=== PATIENT | male | born 1995 | race African-American/Black ===

== ENCOUNTER 2020-11-24 17:00 | Emergency (ER) | payer OTHER ==
[2020-11-24] MEDS ORDERED: LIDOCAINE 1% INJ-PF (10 MG/ML) 30 ML SDV INJ ONE (17:55)
--- NOTE | 2020-11-24 17:57 | ER Document Report ---
ED Wound - General Chief Complaint: Laceration Stated Complaint: LACERATION/RIGHT PINKY FINGER Time Seen by Provider: 11/24/20 17:53 Primary Care Provider: LOUIS TODD MD [Primary Care Provider] - Follow up as needed Notes: CHIEF COMPLAINT: Right fifth finger laceration HPI: 25-year-old male with a laceration to the right fifth finger. Was doing the dishes broke a glass and cut the finger. Denies numbness or tingling in the fingertip. States he can fully flex and extend the finger. States he is up-to-date on his tetanus vaccination ROS: See HPI - all other systems were reviewed and are otherwise negative Constitutional: no fever Integumentary: Positive laceration Allergy: no hives Musculoskeletal: + extremity pain or swelling Neurological: no numbness/tingling, no weakness MEDICATIONS: I agree with the patient medications as charted by the RN. ALLERGIES: I agree with the allergies as charted by the RN. PAST MEDICAL HISTORY/PAST SURGICAL HISTORY: Reviewed and agree as charted by RN. SOCIAL HISTORY: Reviewed and agree as charted by RN. FAMILY HISTORY: No significant familial comorbid conditions directly related to patient complaint EXAM: Reviewed vital signs as charted by RN. CONSTITUTIONAL: Alert and oriented and responds appropriately to questions. Well-appearing; well-nourished HEAD: Normocephalic; atraumatic EYES: Conjunctivae clear, sclerae non-icteric ENT: normal nose; no rhinorrhea; moist mucous membranes NECK: Supple without meningismus CARD: symmetric distal pulses RESP: Normal chest excursion without splinting or tachypnea ABD/GI: non-distended BACK: The back appears normal EXT: Normal ROM in all joints; no cyanosis, no effusions, no edema SKIN: Normal color for age and race; warm; dry; good turgor; there is a 2.5 cm triangular flap type laceration over the medial phalange ulnar side right fifth finger no visible or palpable foreign body. No visible tendon injury NEURO: Moves all extremities equally; Motor and sensory function intact PSYCH: The patient's mood and manner are appropriate. Grooming and personal hygiene are appropriate. MDM: 25-year-old male with a 1 cm laceration right fifth finger. Will obtain x- ray for foreign body plan to repair the wound - Related Data Allergies/Adverse Reactions: No Known Allergies Allergy (Verified 11/24/20 17:50) Past Medical History - Social History Smoking Status: Former Smoker Family History: Reviewed & Not Pertinent Physical Exam - Vital signs Vitals: Temp Pulse Resp BP Pulse Ox 98.3 F 86 20 133/75 H 98 11/24/20 17:47 11/24/20 17:47 11/24/20 17:47 11/24/20 17:47 11/24/20 17:47 Course - Re-evaluation Re-evalutation: 11/24/20 18:26 There was no foreign body noted on visual exam of the laceration in a bloodless field - Vital Signs Vital signs: Temp Pulse Resp BP Pulse Ox 98.3 F 86 20 133/75 H 98 11/24/20 17:47 11/24/20 17:47 11/24/20 17:47 11/24/20 17:47 11/24/20 17:47 - Laboratory Results Critical Laboratory Results Reviewed: No Critical Results - Radiology Results Critical Radiology Results Reviewed: No Critical Results Procedures - Laceration/Wound Repair Right Medial Finger 5th digit Time completed: 18:24 Wound length (cm): 2.5 Wound's Depth, Shape: Irregular, Flap Laceration pre-procedure: Sterile PPE donned, Sterile drapes applied, Other - saline Anesthetic type: 1% Lidocaine Volume Anesthetic (mLs): 1 Wound explored: Clean, No foreign body removed Irrigated w/ Saline (mLs): 250 Wound Repaired With: Sutures Suture Size/Type: 5:0, Prolene Number of Sutures: 7 Layer Closure?: No Post-procedure wound care: Sterile dressing applied Post-procedure NV exam normal: Yes Complications: No Discharge - Discharge Clinical Impression: Laceration of finger, right, complicated Qualifiers: Encounter type: initial encounter Qualified Code(s): S61.219A - Laceration without foreign body of unspecified finger without damage to nail, initial encounter Condition: Stable Disposition: HOME, SELF-CARE Instructions: Laceration Care ([facility]) Additional Instructions: Motrin or Tylenol for pain. Sutures out as directed, 10 days Keep the area as clean and dry as possible applying antibiotic ointment and dressing daily. Return for any redness, discharge, swelling or signs of infection. Referrals: LOUIS TODD MD [Primary Care Provider] - Follow up as needed
--- NOTE | 2020-11-24 18:19 | RADIOLOGY REPORT (SQ) ---
EXAM DESCRIPTION: FINGER RIGHT IMAGES COMPLETED DATE/TIME: 11/24/2020 6:03 pm REASON FOR STUDY: FB COMPARISON: None. NUMBER OF VIEWS: Three views. TECHNIQUE: AP, lateral, and oblique images acquired of the right 5th digit LIMITATIONS: None. FINDINGS: MINERALIZATION: Normal. BONES: No acute fracture or dislocation. No worrisome bone lesions. SOFT TISSUES: No soft tissue swelling. No foreign body. OTHER: No other significant finding. IMPRESSION: No evidence of acute osseous injury. While note retained radiopaque foreign body is dem onstrated, it should be noted that glass would not necessarily be radiopaque. COMMENT: SITE OF TRAUMA/COMPLAINT MARKED/STAMP COMPLETED: NO. TECHNICAL DOCUMENTATION: JOB ID: [id number] 2010 [employer]- All Rights Reserved Reading location - IP/workstation name: [email or web address]
[2020-11-24 19:00] VITALS: BP 126/77
== END 2020-11-24 19:03 | disposition home or self-care (01) ==
LOC: ER 17:00
DX: S61.216A Laceration without foreign body of right little finger without damage to nail, initial encounter (principal); W25.XXXA Contact with sharp glass, initial encounter; Y93.G1 Activity, food preparation and clean up
CPT/HCPCS: 99283

== ENCOUNTER 2020-12-06 21:18 | Emergency (ER) | payer OTHER, MEDICAID ==
--- NOTE | 2020-12-06 21:32 | ER Document Report ---
ED Medical Screen (RME) - General Chief Complaint: Suicidal Ideation Stated Complaint: SUICIDAL IDEATION, ACTION Time Seen by Provider: 12/06/20 21:30 Primary Care Provider: LOUIS TODD MD [Primary Care Provider] - Follow up as needed Mode of Arrival: Ambulatory Information source: Patient Notes: 25-year-old male with multiple mental health diagnoses to include anxiety, depression, PTSD Adderall apparently service related presenting to the emergency department with suicidal thoughts. Patient reports he watched his friend shoot himself in the head with a gun and he was thinking about doing the same. Patient reports he has 8 guns in his home and really wants to get some help. Patient has a very flat affect, he is calm and cooperative in triage. IVC papers initiated in triage. I have greeted and performed a rapid initial assessment of this patient. A comprehensive ED assessment and evaluation of the patient, analysis of test results and completion of the medical decision making process will be conducted by additional ED providers. I have specifically instructed the patient or family members with the patient to immediately return to any nursing staff should anything change in the patient's condition or with their chief complaint. - Related Data Allergies/Adverse Reactions: No Known Allergies Allergy (Verified 11/24/20 17:50) Physical Exam - Vital signs Vitals: Temp Pulse Resp BP Pulse Ox 98.6 F 88 20 146/86 H 100 12/06/20 21:34 12/06/20 21:34 12/06/20 21:34 12/06/20 21:34 12/06/20 21:34 Course - Vital Signs Vital signs: Temp Pulse Resp BP Pulse Ox 98.6 F 88 20 146/86 H 100 12/06/20 21:34 12/06/20 21:34 12/06/20 21:34 12/06/20 21:34 12/06/20 21:34 Doctor's Discharge - Discharge Referrals: LOUIS TODD MD [Primary Care Provider] - Follow up as needed
[2020-12-06 22:34] LABS: ABSOLUTE BASOPHILS # (AUTO) 0.1 10^3/uL (0.0-0.2); ABSOLUTE EOSINOPHILS # (AUTO) 0.2 10^3/uL (0.0-0.6); ABSOLUTE MONOCYTES (AUTO) 0.6 10^3/uL (0.1-1.4); ABSOLUTE NEUT (AUTO) 3.1 10^3/uL (1.7-8.2); MEAN CORPUSCULAR HGB CONC 33.8 g/dL (32.0-36.0); TOTAL CELLS COUNTED % (AUTO) 100 %
[2020-12-06 22:38] LABS: BASOPHILS % (AUTO) 0.7 % (0-2); EOSINOPHILS % (AUTO) 3.2 % (0-6); HEMATOCRIT 45.8 % (37.9-51.0); HEMOGLOBIN 15.5 g/dL (13.5-17.0); LYMPHOCYTES % (AUTO) 43.3 % (13-45); MEAN CORPUSCULAR HEMOGLOBIN 27.2 pg (27.0-33.4); MEAN CORPUSCULAR VOLUME 81 fl (80-97); MONOCYTES % (AUTO) 8.8 % (3-13); PLATELET COUNT 225 10^3/uL (150-450); RED BLOOD COUNT 5.68 10^6/uL (4.35-5.55); RED CELL DISTRIBUTION WIDTH 12.9 % (11.5-14.0)
[2020-12-06 22:55] LABS: ALBUMIN 4.7 g/dL (3.5-5.0); ALKALINE PHOSPHATASE 90 U/L (38-126); ANION GAP 9 (5-19); ASPARTATE AMINO TRANSFERASE 36 U/L (17-59); BILIRUBIN,DIRECT 0.2 mg/dL (0.0-0.4); BILIRUBIN,TOTAL 0.4 mg/dL (0.2-1.3); BLOOD UREA NITROGEN 11 mg/dL (7-20); CARBON DIOXIDE 27 mmol/L (22-30); CHLORIDE 103 mmol/L (98-107); GLUCOSE 102 mg/dL (75-110); POTASSIUM 4.3 mmol/L (3.6-5.0); TOTAL PROTEIN 8.3 g/dL (6.3-8.2)
[2020-12-06 22:56] LABS: ACETAMINOPHEN < 10 ug/mL (10-30); ALCOHOL < 10 mg/dL (NONE DETECTED); SALICYLATE < 1.0 mg/dL (2.0-20.0)
[2020-12-06 23:06] LABS: APPEARANCE,URINE CLEAR; BILIRUBIN,URINE NEGATIVE (NEGATIVE); COLOR,URINE YELLOW; GLUCOSE, URINE NEGATIVE (NEGATIVE); KETONES,URINE NEGATIVE (NEGATIVE); LEUKOCYTE ESTERASE,URINE NEGATIVE (NEGATIVE); NITRITE,URINE NEGATIVE (NEGATIVE); PROTEIN,URINE NEGATIVE (NEGATIVE); URINE SPECIFIC GRAVITY 1.025
[2020-12-06 23:23] LABS: URINE AMPHETAMINES SCREEN NEGATIVE; URINE BARBITURATES SCREEN NEGATIVE; URINE BENZODIAZEPINES SCREEN NEGATIVE; URINE COCAINE SCREEN NEGATIVE; URINE MARIJUANA (THC) SCREEN NEGATIVE; URINE METHADONE SCREEN NEGATIVE; URINE PHENCYCLIDINE SCREEN NEGATIVE
[2020-12-07] MEDS ORDERED: MELATONIN 5 MG TABLET PO ONE (00:02)
--- NOTE | 2020-12-07 00:04 | ER Document Report ---
ED Psych Disorder / Suicide - General Chief Complaint: Suicidal Ideation Stated Complaint: SUICIDAL IDEATION, ACTION Time Seen by Provider: 12/06/20 21:30 Primary Care Provider: LOUIS TODD MD [Primary Care Provider] - Follow up as needed Mode of Arrival: Ambulatory Information source: Patient Notes: 25-year-old male with a past medical history significant for depression, anxiety, PTSD presented to the emergency room with suicidal thoughts. Patient states he is not currently in therapy takes the sertraline but not consistently. States his PTSD was service related and he knows that he has anger issues that have never been addressed. Patient denies any previous suicide attempts or hospitalizations for his mental health issues. Patient states "I just think my mental health is out of control". Patient was having suicidal thoughts but denies any suicidal ideation. Patient states that he saw a friend kill himself with a gun in 2017 and thought about shooting himself. Patient does have multiple guns in the home. Patient was placed under IVC by Dr. Reyes TRAVEL OUTSIDE OF THE [place] IN LAST 30 DAYS: No - Related Data Allergies/Adverse Reactions: No Known Allergies Allergy (Verified 11/24/20 17:50) Home Medications: citriline Past Medical History - General Information source: Patient - Social History Smoking Status: Current Some Day Smoker Frequency of alcohol use: Occasional Drug Abuse: None Family History: Reviewed & Not Pertinent Review of Systems - Review of Systems Constitutional: No symptoms reported EENT: No symptoms reported Cardiovascular: No symptoms reported Respiratory: No symptoms reported Musculoskeletal: No symptoms reported Skin: No symptoms reported Neurological/Psychological: Depression, Anxiety, Other - Suicidal thoughts, anger issues -: Yes All other systems reviewed and negative Physical Exam - Vital signs Vitals: Temp Pulse Resp BP Pulse Ox 98.6 F 88 20 146/86 H 100 12/06/20 21:34 12/06/20 21:34 12/06/20 21:34 12/06/20 21:34 12/06/20 21:34 - Notes Notes: GENERAL: Mild acute distress, non-toxic appearance. HEAD: Normal with no signs of head trauma. EYES: PERRLA, EOMI, conjunctiva normal, no discharge. EARS: Hearing grossly intact. NOSE: Normal. THROAT: Oropharynx is normal. NECK: Normal range of motion, no tenderness, supple, no lymphadenopathy, No adenopathy, no JVD. CHEST: Clear breath sounds bilaterally. No wheezes, rales, or rhonchi. CARDIAC: Regular rate and rhythm. S1 and S2, without murmurs, gallops, or rubs. VASCULAR: No Edema. Peripheral pulses normal and equal in all extremities. ABDOMEN: Normal and soft with no tenderness, no masses or pulsatile masses. No organomegaly. Positive bowel sounds x4. No CVA tenderness noted bilaterally. GASTROINTESTINAL: Bowel sounds normal LYMPATHTIC: No lymphadenopathy noted. MUSCULOSKELETAL: Good range of motion of all major joints. Extremities without clubbing, cyanosis or edema. NEUROLOGICAL: Alert and oriented x 3. No focal sensory or strength deficits. Speech normal. Follows commands appropriately. PSYCHIATRIC: Flat affect, cooperative. Denies any suicidal or homicidal ideation.. SKIN: Normal appearance with no rashes or lesions. Course - Re-evaluation Re-evalutation: 12/07/20 00:03 Patient is resting he is in no acute distress. Patient is concerned about not being able to sleep tonight. Will order low-dose of melatonin. Patient offers no other concerns or complaints at this time. Patient is aware that he has been placed on IVC papers that he will be seen tomorrow by our mental health department. He agrees with plan of care. 12/07/20 03:10 - Vital Signs Vital signs: Temp Pulse Resp BP Pulse Ox 97.3 F 79 18 132/79 H 100 12/08/20 08:32 12/08/20 08:32 12/08/20 08:32 12/08/20 08:32 12/08/20 08:32 - Laboratory Results Result Diagrams: 12/06/20 22:20 12/06/20 22:20 Laboratory Results Interpreted: 12/06/20 12/06/20 12/06/20 22:20 22:20 22:29 RBC 5.68 H ALT 61 H Total Protein 8.3 H Urine Urobilinogen 2.0 H Urine Ascorbic Acid 40 H Salicylates < 1.0 L Acetaminophen < 10 L Critical Laboratory Results Reviewed: No Critical Results - Radiology Results Critical Radiology Results Reviewed: No Critical Results - EKG Interpretation by De EKG shows normal: Sinus rhythm Rate: Normal Additional EKG results interpreted by me: 12/07/20 00:01 EKG was interpreted by ER physician Dr. Reyes No acute STEMI Normal sinus rhythm Rate [address] wave abnormality No previous EKGs for comparison Discharge - Discharge Clinical Impression: Suicidal thoughts Depression Qualifiers: Depression Type: other depression Qualified Code(s): F32.89 - Other specified depressive episodes Condition: Stable Disposition: PSYCH HOSP/UNIT Referrals: LOUIS TODD MD [Primary Care Provider] - Follow up as needed
--- NOTE | 2020-12-07 09:55 | EKG REPORT ---
SEVERITY:- NORMAL ECG - SINUS RHYTHM : Confirmed by: Fernando Rodriges MD 07-Dec-2020 09:55:11
--- NOTE | 2020-12-07 12:05 | ER Document Report ---
Doctor's Note Notes: 12/07/20 12:04 PHYSICAL EXAMINATION: GENERAL: Appears well, healthy, well-nourished, no acute distress. LUNGS: Equal breath sounds bilaterally and clear to auscultation. No wheezes rales or rhonchi. CARDIOVASCULAR: S1-S2, regular rate, regular rhythm. Radial pulses 2+, normal. ABDOMEN: Normoactive bowel sounds. Soft, nontender, no guarding, no rebound tenderness, and no masses palpated. PSYCH: Normal mood, normal affect. Patient denies any homicidal ideation. He states that he does still have some slight suicidal ideation, but states that he is redirecting his mind on thinking positive. 12/07/20 15:29 Patient has been accepted at [facility]. Rapid COVID test to be done.
--- NOTE | 2020-12-07 17:29 | PSYCHOLOGICAL NOTE ---
Psych Note - Psych Note Date seen by psych provider: 12/07/20 Time seen by psych provider: 10:31 Psych Note: Collateral Information: From [id number] spoke to Nurse Najma [facility] after returning call to her (she left a voice mail about patient). She stated patient called the [place] Suicide Prevention/Crisis Hotline yesterday to say he was struggling with sobriety and suicidal. She said it was documented patient had a plan but uncertain about intent. She noted patient had also decided to come to the emergency department. She stated he reported a history of suicidal thoughts and having them yesterday. She identified a previous suicide attempt but it was not stated how/what treatment. She stated patient said his guns were locked up in a case. She reported a history of Anxiety, Depression, and Insomnia. He was last seen by them May 2020, he no showed in August 2020, and they had another scheduled appointment but [facility] to reschedule but he never answered so at this time no follow up appointment. Nurse stated he was being prescribed Zoloft 150MG, has not been taking it since July 2020, they refilled it in November. She stated he was also prescribed Trazodone. Nurse acknowledged patient applied for Caregiver Support (Financial) and was denied with a letter that went out 11/21/2020. She noted patient had called her 2 weeks ago then saying he was struggling with sobriety. From [phone] patient's Giuliana ([phone]) called to check on patient so obtained collateral. She identified she has been living here with patient and their children for the past 2 years. She stated she thinks a trigger was "maybe related to the medications he is supposed to take." She reported these medications are Zoloft and Trazodone. She stated "he kept saying the Zoloft was not working anymore, he has been taking it on and off, recently he has been taking it but not the same time daily." She further stated the Trazodone was for sleep "but he doesn't take it much." She also noted patient is prescribed Naproxen. She denied patient expressing any suicidal ideation before yesterday. She commented "he has not been himself and has been down a lot thought." She stated she was home yesterday and patient did not take any action for suicide. She stated when she stepped out to go to the grocery store patient was on the phone with the [facility] and then later in the day he told he he needed help . She said she was unsure of his diagnosis and unsure of family history as patient doesn't talk to his family. She denied history of suicide attempts and said "not to my knowledge." She reported current stress being "recently our marriage has been raoul." She identified patient's support system include her, their two children (young), and he calls the [facility] when he needs to." She reported "I tell him he needs to keep his appointments and take his medications but he is stubborn."
--- NOTE | 2020-12-07 18:53 | PSYCHOLOGICAL NOTE ---
Psych Note - Psych Note Date seen by psych provider: 12/07/20 Time seen by psych provider: 11:28 Psych Note: Reason for Consult: suicidal ideation [id number] Consent Permissions: Patient is a 25 year old male who presented to the [facility] ED yesterday via POV. He reports suicidal ideations with plan to shoot himself, however does not report intent. He has multiple guns in the home and has not attempted suicide in the past. He reports history of depression and anxiety and PTSD (however [facility] does not confirm PTSD). 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 He reports being administratively (alleged honorably) for medical issues and mental health issues. Patient states he is getting 70% disability and is not working. He reports ongoing depression and passive SI over the last several months. Patient reports trauma related to allegedly seeing his friend commit suicide (via shooting) in 2017, however, this was not recorded in the and reports he did not tell his command, at the time, that he was present for this. 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 Patient is not working, is (since 2018), and has two kids (age 5 step daughter and age 1 biological son). He reports recently has not felt like himself and is not thinking like himself and uses this to describe being unfaithful to his . Patient states he was cheating on his , ongoing (not one time), and cut it off recently. He reports yesterday informing his of the affair. Patient states his left the house to gather her thoughts and came back home. Patient reports his and him want to work on things. When asked if his did choose to separate or divorce from him, patient replies that he would not be okay because she is his whole world. Patient denies history of inpatient hospitalizations and suicide attempts, but states he has thought about shooting himself and notes he has multiple guns in the home. Patient has a history of non-compliance with medications and states he forgets to take them and does not feel like they are working due to not using as prescribed; Zoloft and Trazodone. Patient does report history of seeing the [facility] (for substance abuse) in 2018, but states this has not been an issue. He reports drinking alcohol maybe two times a month. Checked back in with patient. Provided him with information for [facility]. Recommended he call and inform his where he will be going and provide her with the POC numbers from the pamphlet he was given. He was recommended to inform her he will be leaving in the morning so that she is aware of his whereabouts. He accepted information and agreed to call . Collateral was obtained by behavioral health team. Please refer to Alda Leslie note from today, 12.07.2020. Patient was alert and oriented to self, person, place, time and situation. Mood was dyphoric with flat affect. He denies current homicidal ideation, plan, and intent. Patient reports suicidal ideations with thoughts of shooting himself (saw friend this way), but does not confirm intent (as he has guns in the home) Patient did not appear to be responding to internal stimuli as evidenced by fair eye contact and answering questions appropriately when addressed. Thought processes are linear and organized. Conversational speech was within normal limits for rate, tone and prosody. Intellectual abilities are estimated to be average. Insight, judgment, and impulse control were fair as evidenced by informing he was feeling depressed and coming to the ED. Patient engages appropriately. Clinical Presentation: suicidal ideations; depression; psychosocial stressors IVC Criteria per [facility] 122C Dangerous to others Within the relevant past the individual No has inflicted or attempted to inflict or threatened to inflict serious bodily harm on another AND No that there is a reasonable probability that this conduct will be repeated. OR No has acted in such a way as to create a substantial risk of serious bodily harm to another AND No that there is a reasonable probability that this conduct will be repeated. OR No has engaged in extreme destruction of property AND NO that there is a reasonable probability that this conduct will be repeated. Previous episodes of dangerousness to others, when applicable, may be considered when determining reasonable probability of future dangerous conduct. Clear, cogent, and convincing evidence that an individual has committed a homicide in the relevant past is prima facie evidence of dangerousness to others. Dangerous to self Within the relevant past the individual has done any of the following: acted in such a way as to show ALL of the following: No The individual would be unable without care, supervision, and the continued assistance of others not otherwise available, to exercise self-co ntrol, judgment, and discretion in the conduct of the individual's daily responsibilities and social relations or to satisfy the individual's need for nourishment, personal or medical care, nursing home, or self-protection and safety. AND No There is a reasonable probability of the individual suffering serious physical debilitation within the near future unless adequate treatment is given. A showing of behavior that is grossly irrational, of actions that the individual is unable to control, of behavior that is grossly inappropriate to the situation, or of other evidence of severely impaired insight and judgment shall create a prima facie inference that the individual is unable to care for himself or herself. OR Yes has attempted suicide or threatened suicide Reported SI with thoughts of shooing self AND Yes that there is a reasonable probability of suicide unless adequate treatment is given Patient reports history of depression that he has not been compliant with medications or treatment regimen; stressor at home of marital issues; concern for following through with shooting himself due to access to guns and concern for follow through if his and him decided to separate; shooting himself concern is high due to alleging seeing his friend commit suicide via shooting himself. OR No has mutilated himself or herself or attempted to mutilate himself or herself AND No that there is a reasonable probability of serious self-mutilation unless adequate treatment is given. NOTE: Previous episodes of dangerousness to self, when applicable, may be c onsidered when determining reasonable probability of physical debilitation, suicide, or self-mutilation. Impression\plan: Patient is currently under full IVC and referral is being sent to inpatient psychiatric hospitals to assist patient with medication management in order to return to baseline. He is a danger to himself due to expressed suicidal ideations, thoughts of shooting himself, access to multiple guns in the home, marital issues in the home, and trauma history of allegedly seeing his friend commit suicide via shooting self. Patient is non-compliant with medication regimen and has missed psychiatric appointments. There are significant concerns for patients mental state given his recent stressor of informing his he has been cheating and not knowing the next steps in their relationship. Patients referral is being sent to psychiatric hospitals in attempt to stabilize. Dr. Mayfield was consulted to care management of this patient; attending physicians in agreement with recommendations and disposition.
[2020-12-08 09:00] VITALS: BP 132/79
--- NOTE | 2020-12-08 10:24 | ER Document Report ---
Doctor's Note Notes: 12/08/20 0900 Patient's vital signs and previous labs, diagnostic images reviewed. Reviewed mental health notes, nurse's notes and previous providers notes. VSS. Pt is in no distress at this time. Denies any SI or HI. General: A&Ox3. Answers questions appropriately. Heart: RRR Lungs: CTAB Psych: Flat affect A/P: Continue monitoring and rec's per MH. Normal diet plan: discharge to [facility]
== END 2020-12-08 10:05 ==
LOC: ER 21:18
DX: Z04.6 Encounter for general psychiatric examination, requested by authority (principal); R45.851 Suicidal ideations; F41.9 Anxiety disorder, unspecified; F32.9 Major depressive disorder, single episode, unspecified; T43.226A Underdosing of selective serotonin reuptake inhibitors, initial encounter; G47.00 Insomnia, unspecified; T43.216A Underdosing of selective serotonin and norepinephrine reuptake inhibitors, initial encounter; Z91.138 Patient's unintentional underdosing of medication regimen for other reason; F17.200 Nicotine dependence, unspecified, uncomplicated; Z91.14 Patient's other noncompliance with medication regimen; Z75.1 Person awaiting admission to adequate facility elsewhere; Z63.0 Problems in relationship with spouse or partner; Z20.822 Contact with and (suspected) exposure to COVID-19
CPT/HCPCS: 93005; 99285; 36415; 80307 ×4; 85025; 0241U; 80053; 81001; 93010; C9803; J3490